=== PATIENT | female | born 1990 | race Caucasian/White ===

== ENCOUNTER → 2020-09-10 09:15 | Outpatient (CLI) | payer BC, SELFPAY ==
[2020-09-10 09:59] LABS: Basophils % 0.5 % (0.1-2.0); Eosinophils # 0.2 K/mm3 (0.0-0.4); Eosinophils % 2.2 % (0.1-12.0); Hematocrit 42.6 % (37.0-47.0); Hemoglobin 13.6 g/dL (12.2-16.2); Lymphocytes # 2.3 K/mm3 (0.7-4.5); Mean Corpuscular Hemoglobin 29.4 pg (27.0-31.2); Mean Corpuscular Volume 92.1 fl (81-99); Mean Platelet Volume 7.7 fl (7.4-10.4); Monocytes # 0.5 K/mm3 (0.1-1.0); Monocytes % 7.2 % (1.7-9.3); Neutrophils # 4.1 K/mm3 (1.8-7.8); Platelet Count 293 K/mm3 (142-424); Red Blood Count 4.62 M/mm3 (4.20-5.40); Red Cell Distribution Width 13.1 % (11.5-17.5)
[2020-09-10 10:01] LABS: Alanine Aminotransferase 25 U/L (12-78); Albumin Level 4.3 g/dl (3.5-5.0); Albumin/Globulin Ratio 1.5 (1.1-1.8); Alkaline Phosphatase 75 U/L (38-126); Anion Gap 12.1 mEq/L (5-15); Aspartate Amino Transferase 33 U/L (14-36); Bilirubin,Total 0.4 mg/dl (0.2-1.3); Blood Urea Nitrogen 9 mg/dl (7-17); Calcium 9.4 mg/dl (8.4-10.2); Carbon Dioxide 29 mmol/L (22.0-30.0); Chloride 103 mmol/L (98-107); Chol/HDL Ratio 2.6 (1-3.5); Cholesterol 148 mg/dl (140-200); Estimated Glomerular Filt Rate 100 ml/min (>60); GFR (African American) 121 ML/MIN (>60); Globulin 2.9 g/dL (1.3-3.2); Glucose 101 mg/dl (74-100); HDL Cholesterol 58 mg/dl (40-60); Potassium 4.1 mmoL/L (3.5-5.1); Sodium 140 mmol/L (136-145); Total Protein,Serum 7.2 g/dl (6.3-8.2); Triglycerides 95 mg/dl (30-150); VLDL Cholesterol 19 mg/dL (0-40)
[2020-09-10 10:31] LABS: Thyroid Stimulating Hormone 3.53 uIU/mL (0.465-4.68)
== END ==
PROVIDERS: Visit Provider Family Medicine
DX: R42 Dizziness and giddiness (principal); F41.8 Other specified anxiety disorders
CPT/HCPCS: 36415; 80053; 80061; 84443; 85025

== ENCOUNTER → 2021-02-04 09:48 | Outpatient (CLI) | payer BC, SELFPAY ==
[2021-02-04 14:01] LABS: T4 (Thyroxine) 8.8 ug/dl (5.53-11.0); Triiodothryronine (T3) Uptake 34 % (23.5-40.5)
[2021-02-04 14:15] LABS: Thyroid Stimulating Hormone 1.76 uIU/mL (0.465-4.68)
[2021-02-05 10:58] LABS: FSH 4.6 mIU/mL (.); LH 17.9 mIU/mL (.)
[2021-02-09 15:13] LABS: Testosterone,Free 3.3 pg/mL (0.0-4.2)
== END ==
PROVIDERS: Visit Provider Nurse Practitioner Obstetrics & Gynecology
DX: L68.0 Hirsutism (principal); L68.9 Hypertrichosis, unspecified
CPT/HCPCS: 36415; 82626; 83001; 83002; 84402; 84436; 84443; 84479

== ENCOUNTER 2022-03-31 16:33 | Emergency (ER) | payer BC, SELFPAY ==
--- NOTE | 2022-03-31 17:24 | EXP.UTC ---
Discharge Plan Disposition Patient Disposition: Home, Self-Care Condition: Good Prescriptions Prescriptions: New promethazine-DM 6.25-15 mg/5 mL Syrup 5 ml PO Q6H PRN (Reason: Cough) Qty: 180 0RF prednisone [prednisone] 20 mg tablet 20 mg PO BID 5 Days Qty: 10 0RF cefdinir 300 mg capsule 300 mg PO BID 20 Days Qty: 20 0RF promethazine-DM 6.25-15 mg/5 mL Syrup 5 ml PO Q6H PRN (Reason: Cough) Qty: 180 0RF prednisone [prednisone] 20 mg tablet 20 mg PO BID 5 Days Qty: 10 0RF cefdinir 300 mg capsule 300 mg PO BID 20 Days Qty: 20 0RF No Action prednisolone acetate [Pred Forte] 1 % drops,suspension 1 drp OPHTHALMIC BID spironolactone 50 mg tablet 50 mg PO DAILY Qty: 90 0RF Referrals Follow up/Referrals: Adal Momin MD [Primary Care Provider] - See instructions Activity Restrictions/Add. Instructions Additional Instructions/Restrictions: Return to [facility] if symptoms worsen Clinical Impressions Clinical Impression: Pneumonia Instructions Patient Instructions: DI for Pneumonia -- Adult Discharge ED Provider: Carol Ferguson [facility] HPI General Stated complaint: cough, chills, NA Time Seen by Provider: 03/31/22 17:30 History of Present Illness Provider Complaint: Cough, chills, headache X 3 days. Denies ear pain, sinus congestion, sore throat. Green sputum. No vomiting or diarrhea. No rash. She does not smoke. Onset (ago): day(s) (3) Location: chest Relieving factors: none Exacerbating factors: none Associated symptoms: cough, fever/chills and headaches Treatments prior to arrival: none Related Data Home Medications Medication Instructions Recorded Confirmed prednisolone acetate 1 % eye 1 drp ophthalmic (eye) BID 02/03/21 02/03/21 drops,suspension (Pred Forte) Previous Rx's Medication Instructions Recorded spironolactone 50 mg tablet 50 mg PO DAILY #90 tabs 02/03/21 cefdinir 300 mg capsule 300 mg PO BID 20 days #20 caps 03/31/22 cefdinir 300 mg capsule 300 mg PO BID 20 days #20 caps 03/31/22 prednisone 20 mg tablet 20 mg PO BID 5 days #10 tabs 03/31/22 prednisone 20 mg tablet 20 mg PO BID 5 days #10 tabs 03/31/22 promethazine-DM 6.25 mg-15 mg/5 mL 5 ml PO Q6H PRN Cough #180 mL 03/31/22 oral syrup promethazine-DM 6.25 mg-15 mg/5 mL 5 ml PO Q6H PRN Cough #180 mL 03/31/22 oral syrup Allergies Allergy/AdvReac Type Severity Reaction Status Date / Time No Known Allergies Allergy Verified 02/03/21 10:49 PFSH PFSH Social History Smoking Status: Never smoker alcohol intake: never substance use type: denies use current occupational status: employed Travel in the last 8 weeks: None ROS Obtained: Yes All systems reviewed & no additional complaints except as documented Constitutional Constitutional: Reports body ache, Reports chills, Reports fatigue, Reports fever(s), Reports headache(s) and Reports malaise ENT Ears, Nose, Mouth, and Throat: Reports headache(s) Respiratory Respiratory: Reports cough Neurologic Neurologic: Reports headache(s) Endocrine Endocrine: Reports fatigue Physical Exam General General appearance: alert and in no apparent distress Head Head exam: atraumatic, normocephalic and normal inspection Eye Eye exam: Present normal appearance, PERRL, EOMI and conjunctival redness ENT ENT exam: Present normal exam, normal oropharynx, mucous membranes moist, TM's normal bilaterally and normal external ear exam Neck Neck exam: Present normal inspection, full ROM and trachea midline; Absent meningismus or lymphadenopathy Chest Chest inspection: Present normal inspection and symmetric chest wall rise; Absent tenderness Respiratory Respiratory exam: Absent respiratory distress Expanded Respiratory Exam Location: Right: rales and rhonchi and Lower: rales and rhonchi Cardiovascular Cardiovascular exam: Present regular rate and normal rhythm; Absent JVD Abdominal Exam Abdominal exam: Present soft and
[2022-03-31 17:25] VITALS: BP 123/79; PULSE 142; RESP 18; TEMP 39.5; O2SAT 96; BMI 28.0
[2022-03-31 17:29] LABS: UTC Influenza A Antigen Negative (Negative); UTC Influenza B Antigen Negative (Negative)
[2022-03-31 17:43] VITALS: BP 123/79; PULSE 142; RESP 18; TEMP 39.4; O2SAT 96
== END 2022-03-31 17:47 | disposition home or self-care (01) ==
PROVIDERS: Emergency Provider Physician Assistant; PCP Family Medicine
DX: J18.9 Pneumonia, unspecified organism (principal)
CPT/HCPCS: 87804; 99212; G0463

== ENCOUNTER → 2022-05-11 12:14 | Outpatient (CLI) | payer BC, SELFPAY ==
[2022-05-11 12:20] LABS: Microscopic, Urine URINE MICROSCOPIC (MICROSCOPIC)
[2022-05-11 13:02] LABS: Basophils # 0.1 K/mm3 (0-0.2); Basophils % 0.7 % (0.1-2.0); Eosinophils # 0.1 K/mm3 (0.0-0.4); Eosinophils % 1.1 % (0.1-12.0); Hematocrit 46.2 % (37.0-47.0); Hemoglobin 14.1 g/dL (12.2-16.2); Lymphocytes # 1.6 K/mm3 (0.7-4.5); Lymphocytes % 23.6 % (10-50); Mean Corpuscular HGB Conc 30.5 g/dL (31.8-35.4); Mean Corpuscular Hemoglobin 29.7 pg (27.0-31.2); Mean Corpuscular Volume 97.4 fl (81-99); Mean Platelet Volume 8.3 fl (7.4-10.4); Monocytes # 0.4 K/mm3 (0.1-1.0); Monocytes % 6.2 % (1.7-9.3); Neutrophils # 4.6 K/mm3 (1.8-7.8); Neutrophils % 68.3 % (37.0-80.0); Platelet Count 335 K/mm3 (142-424); Red Blood Count 4.74 M/mm3 (4.20-5.40); Red Cell Distribution Width 13.8 % (11.5-17.5); White Blood Count 6.8 K/mm3 (4.8-10.8)
[2022-05-11 13:29] LABS: Alanine Aminotransferase 16 U/L (12-78); Albumin Level 4.7 g/dl (3.5-5.0); Albumin/Globulin Ratio 1.7 (1.1-1.8); Alkaline Phosphatase 74 U/L (38-126); Anion Gap 9.2 mEq/L (5-15); Aspartate Amino Transferase 23 U/L (14-36); Bilirubin,Total 0.4 mg/dl (0.2-1.3); Blood Urea Nitrogen 11 mg/dl (7-17); Calcium 9.6 mg/dl (8.4-10.2); Carbon Dioxide 28 mmol/L (22.0-30.0); Chloride 107 mmol/L (98-107); Estimated Glomerular Filt Rate 98 ml/min (>60); GFR (African American) 119 ML/MIN (>60); Globulin 2.8 g/dL (1.3-3.2); Glucose 86 mg/dl (74-100); Potassium 4.2 mmoL/L (3.5-5.1); Sodium 140 mmol/L (136-145); Total Protein,Serum 7.5 g/dl (6.3-8.2)
[2022-05-11 13:34] LABS: C-Reactive Protein 0.4 mg/L (0-4)
[2022-05-11 13:43] LABS: Erythrocyte Sedimentation Rate 6 mm/hr (0-20)
[2022-05-11 15:17] LABS: Appearance,Urine CLEAR (Clear); Bilirubin,Urine Negative (Negative); Blood, Urine Negative (Negative); Color,Urine YELLOW (Yellow); Glucose,Urine (UA) Negative (Negative); Ketones,Urine Negative (Negative); Leukocyte Esterase,Urine Negative (Negative); Nitrate,Urine Negative (Negative); Protein,Urine Negative (Negative); Specific Gravity, Urine 1.025 (1.005-1.030)
[2022-05-11 16:38] LABS: Bacteria,Urine 3+ /lpf; Calcium Oxalate Crystals,Urine Trace /lpf; WBC,Urine Occasional #/hpf (0-3)
[2022-05-12 14:12] LABS: Anti-Centromere B Antibodies <0.2 AI (0.0-0.9); Anti-DNA (DS) Ab Qn <1 IU/mL (0-9); Anti-Jo-1 <0.2 AI (0.0-0.9); Anti-Smith Antibody <0.2 AI (0.0-0.9); Antichromatin Antibodies <0.2 AI (0.0-0.9); Antiscleroderma-70 Antibodies <0.2 AI (0.0-0.9); RNP Antibodies <0.2 AI (0.0-0.9); Sjogren's Anti-SS-A <0.2 AI (0.0-0.9); Sjogren's Anti-SS-B <0.2 AI (0.0-0.9)
== END ==
PROVIDERS: PCP Family Medicine; Visit Provider Internal Medicine
DX: D89.9 Disorder involving the immune mechanism, unspecified (principal); H20.10 Chronic iridocyclitis, unspecified eye; Z15.89 Genetic susceptibility to other disease; Z79.899 Other long term (current) drug therapy
CPT/HCPCS: 36415; 80053; 81001; 85025; 85651; 86140; 86225; 86235; 87086

== ENCOUNTER → 2022-09-05 12:23 | Outpatient (CLI) | payer BC, SELFPAY ==
[2022-09-05 13:00] LABS: Basophils # 0.1 K/mm3 (0-0.2); Basophils % 0.7 % (0.1-2.0); Eosinophils # 0.2 K/mm3 (0.0-0.4); Eosinophils % 2.7 % (0.1-12.0); Hematocrit 45.8 % (37.0-47.0); Hemoglobin 14.5 g/dL (12.2-16.2); Lymphocytes % 28.1 % (10-50); Mean Corpuscular HGB Conc 31.6 g/dL (31.8-35.4); Mean Corpuscular Hemoglobin 29.7 pg (27.0-31.2); Mean Platelet Volume 7.9 fl (7.4-10.4); Monocytes # 0.6 K/mm3 (0.1-1.0); Monocytes % 8.2 % (1.7-9.3); Neutrophils # 4.2 K/mm3 (1.8-7.8); Neutrophils % 60.4 % (37.0-80.0); Platelet Count 352 K/mm3 (142-424); Red Blood Count 4.87 M/mm3 (4.20-5.40); Red Cell Distribution Width 13.3 % (11.5-17.5); White Blood Count 6.9 K/mm3 (4.8-10.8)
[2022-09-05 13:23] LABS: Alanine Aminotransferase 21 U/L (12-78); Albumin Level 4.6 g/dl (3.5-5.0); Albumin/Globulin Ratio 1.6 (1.1-1.8); Alkaline Phosphatase 64 U/L (38-126); Anion Gap 12.3 mEq/L (5-15); Aspartate Amino Transferase 27 U/L (14-36); Bilirubin,Total 0.4 mg/dl (0.2-1.3); Blood Urea Nitrogen 9 mg/dl (7-17); Calcium 8.8 mg/dl (8.4-10.2); Carbon Dioxide 28 mmol/L (22.0-30.0); Chloride 103 mmol/L (98-107); Estimated Glomerular Filt Rate 117 ml/min (>60); GFR (African American) 142 ML/MIN (>60); Globulin 2.8 g/dL (1.3-3.2); Glucose 76 mg/dl (74-100); Potassium 4.3 mmoL/L (3.5-5.1); Sodium 139 mmol/L (136-145); Total Protein,Serum 7.4 g/dl (6.3-8.2)
[2022-09-05 13:29] LABS: C-Reactive Protein 0.5 mg/L (0-4)
[2022-09-05 13:34] LABS: Erythrocyte Sedimentation Rate 14 mm/hr (0-20)
== END ==
PROVIDERS: PCP Family Medicine; Visit Provider Nurse Practitioner Women's Health
DX: D84.821 Immunodeficiency due to drugs (principal); H20.10 Chronic iridocyclitis, unspecified eye; Z79.899 Other long term (current) drug therapy
CPT/HCPCS: 36415; 80053; 85025; 85651; 86140

== ENCOUNTER → 2022-12-07 14:45 | Outpatient (CLI) | payer BC, SELFPAY ==
[2022-12-07 15:29] LABS: Basophils % 0.5 % (0.1-2.0); Eosinophils # 0.2 K/mm3 (0.0-0.4); Eosinophils % 2.9 % (0.1-12.0); Hematocrit 43.8 % (37.0-47.0); Hemoglobin 13.4 g/dL (12.2-16.2); Lymphocytes # 1.7 K/mm3 (0.7-4.5); Lymphocytes % 27.4 % (10-50); Mean Corpuscular HGB Conc 30.6 g/dL (31.8-35.4); Mean Corpuscular Hemoglobin 28.3 pg (27.0-31.2); Mean Corpuscular Volume 92.5 fl (81-99); Mean Platelet Volume 8.3 fl (7.4-10.4); Monocytes # 0.5 K/mm3 (0.1-1.0); Monocytes % 7.7 % (1.7-9.3); Neutrophils # 3.9 K/mm3 (1.8-7.8); Neutrophils % 61.5 % (37.0-80.0); Platelet Count 319 K/mm3 (142-424); Red Blood Count 4.73 M/mm3 (4.20-5.40); Red Cell Distribution Width 13.2 % (11.5-17.5); White Blood Count 6.3 K/mm3 (4.8-10.8)
[2022-12-07 15:46] LABS: Alanine Aminotransferase 29 U/L (12-78); Albumin Level 4.3 g/dl (3.5-5.0); Albumin/Globulin Ratio 1.5 (1.1-1.8); Alkaline Phosphatase 71 U/L (38-126); Anion Gap 16.1 mEq/L (5-15); Aspartate Amino Transferase 35 U/L (14-36); Bilirubin,Total 0.3 mg/dl (0.2-1.3); Blood Urea Nitrogen 10 mg/dl (7-17); Calcium 8.9 mg/dl (8.4-10.2); Carbon Dioxide 26 mmol/L (22.0-30.0); Chloride 102 mmol/L (98-107); Estimated Glomerular Filt Rate 117 ml/min (>60); GFR (African American) 142 ML/MIN (>60); Globulin 2.8 g/dL (1.3-3.2); Glucose 96 mg/dl (74-100); Potassium 4.1 mmoL/L (3.5-5.1); Sodium 140 mmol/L (136-145); Total Protein,Serum 7.1 g/dl (6.3-8.2)
[2022-12-07 16:18] LABS: Thyroid Stimulating Hormone 1.04 uIU/mL (0.465-4.68)
[2022-12-09 11:51] LABS: Insulin Level Total 18.7 uIU/mL (2.6-24.9)
[2022-12-16 00:08] LABS: Testosterone, Total, LC/MS 62 ng/dL (.)
== END ==
PROVIDERS: PCP Family Medicine; Visit Provider Obstetrics & Gynecology
DX: L68.0 Hirsutism (principal); N92.6 Irregular menstruation, unspecified; Z79.899 Other long term (current) drug therapy
CPT/HCPCS: 36415; 80053; 82626; 83525; 84403; 84443; 85025

== ENCOUNTER → 2023-02-19 12:41 | Outpatient (CLI) | payer BC, SELFPAY ==
[2023-02-19 16:13] LABS: Chloride 106 mmol/L (98-107); Potassium 4.5 mmoL/L (3.5-5.1); Sodium 140 mmol/L (136-145)
[2023-02-19 16:15] LABS: Blood Urea Nitrogen 6 mg/dl (7-17); Estimated Glomerular Filt Rate 98 ml/min (>60); GFR (African American) 119 ML/MIN (>60)
[2023-02-19 16:16] LABS: Alanine Aminotransferase 32 U/L (12-78); Albumin Level 4.1 g/dl (3.5-5.0); Albumin/Globulin Ratio 1.3 (1.1-1.8); Alkaline Phosphatase 106 U/L (38-126); Anion Gap 17.5 mEq/L (5-15); Aspartate Amino Transferase 35 U/L (14-36); Bilirubin,Total 0.6 mg/dl (0.2-1.3); Calcium 9.7 mg/dl (8.4-10.2); Carbon Dioxide 21 mmol/L (22.0-30.0); Globulin 3.2 g/dL (1.3-3.2); Glucose 115 mg/dl (74-100); Total Protein,Serum 7.3 g/dl (6.3-8.2)
== END ==
PROVIDERS: PCP Family Medicine; Visit Provider Obstetrics & Gynecology
DX: L68.0 Hirsutism (principal)
CPT/HCPCS: 36415; 80053

== ENCOUNTER → 2023-04-02 09:33 | Outpatient (CLI) | payer BC, SELFPAY ==
[2023-04-02 11:13] LABS: Hemoglobin A1C 5.2 % (4.0-6.0)
[2023-04-02 12:02] LABS: Chol/HDL Ratio 3.3 (1-3.5); Cholesterol 143 mg/dl (140-200); HDL Cholesterol 44 mg/dl (40-60); Triglycerides 68 mg/dl (30-150); VLDL Cholesterol 14 mg/dL (0-40)
[2023-04-02 12:13] LABS: Direct LDL Cholesterol 79.35 mg/dL (100-129)
[2023-04-02 12:15] LABS: Free T4 (Free Thyroxine) 1.37 ng/dl (0.78-2.19)
[2023-04-02 12:17] LABS: 25-OH Vitamin D, Total 27.8 ng/mL (30-100)
[2023-04-02 12:49] LABS: Vitamin B12 437 pg/mL (239-931)
== END ==
PROVIDERS: PCP Internal Medicine; Visit Provider Internal Medicine
DX: Z13.21 Encounter for screening for nutritional disorder (principal); Z13.1 Encounter for screening for diabetes mellitus; Z13.220 Encounter for screening for lipoid disorders; Z13.29 Encounter for screening for other suspected endocrine disorder; E55.9 Vitamin D deficiency, unspecified; Z68.39 Body mass index [BMI] 39.0-39.9, adult
CPT/HCPCS: 36415; 80061; 82306; 82607; 83036; 84439

== ENCOUNTER → 2023-04-10 09:31 | Outpatient (CLI) | payer BC, SELFPAY ==
--- NOTE | 2023-04-10 09:36 | XR_ITS ---
FINAL REPORT CLINICAL HISTORY: Numbness/Tingling from next down to hand PT UNABLE TO REMOVE PIERCINGS FINDINGS: SPINE CERVICAL COMPLETE/FLEXION & EXT AP, lateral, oblique and flexion and extension views were obtained. Alignment is within normal limits. The vertebrae are normal height. The disc spaces are preserved. There is no abnormal movement with flexion or extension. IMPRESSION: No acute process. Reviewed, Interpreted and Dictated by Khanh Dorman III, MD Transcribed by Leonard Lopez Authenticated and [facility]
--- OUTSIDE RECORDS SUMMARY | 2023-04-10 09:40 | XMS_ITS | Continuity of Care Document ---
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 qtb negative november 2021. approved till 02/02/2023. difluprednate 0.05 % eye drops instill 1 drop by ophthalmic route 4 times every day into affected eye(s) ;start 24hrs post op x 2 wks; then 2 times/day x 7 days; then taper 1.00 drop - Active Humira(CF) Pen 40 mg/0.4 mL subcutaneous kit inject 0.4 milliliter by subcutaneous route every 2 weeks in the abdomen or thigh (rotate sites) 40 MG - No Longer Active failed: methotrexate, steroid eye drops, remicade. qtb negative november 2021. approved till 02/02/2023. Procedures Procedure Date Office Visit Level IV Office Visit Level IV
== END ==
LOC: RAD 09:32
PROVIDERS: PCP Internal Medicine; Visit Provider Internal Medicine
DX: R20.2 Paresthesia of skin (principal)
CPT/HCPCS: 72052

== ENCOUNTER 2023-11-03 11:23 | Emergency (ER) | payer BC, SELFPAY ==
--- OUTSIDE RECORDS SUMMARY | 2023-11-03 11:26 | XMS_ITS | Continuity of Care Document ---
Author Name Unknown Organization [facility] Address [address] [address] Phone Care Team Providers Care Bin Packer Name Role Phone Audrey Lynch APRN Unavailable [...] Visit Level IV Office Visit Level IV EL-anti-CCP/2 Rheumatoid Factor Valdemar RF/3 IgM Aug-03-2 022 RF/3 IgG/IgA New Office Visit Level V Chest X-ray 2 Views Advance Directives Directive Yes / No Effective Date File Name No Information Encounters Encounter Description Practice Location Reason(s) For Visit Diagnoses Date Provider Providers Copied on Encounter Office Visit Level IV [facility] [address] [facility] [address] [place] [address], [id number], tel:[phone] [place] Location Bilateral chronic uveitis (chief complaint) Chronic UveitisHLA-B27 POSITIVEHigh Risk Medication UseBody mass index (BMI) 37.0-37.9, adultImmune deficiency due to current drug Aug- 3 Syed Ventura. [address] [facility], [address], [place], [id number]. tel:[phone] Referring Provider: Nereida De León, [address], [place], [address]. tel:[phone] Office Visit Level IV [facility] [address] [place] [address], [id number], [place] tel:[phone] [place] Location Bilateral chronic uveitis (chief complaint) Immunosuppress ionChronic UveitisHLA-B27 POSITIVEBody mass index (BMI) 36.0-36.9, adultHigh Risk Medication Use 2 Dayne Valente. [address], [place], [place], [id number]. tel:[phone] Referring Provider: Nereida De León, [address], [place], [address]. tel:[phone] [facility] [address], [place], [place], [id number], [place] tel:[phone] [facility] No Information 2 Dayne Valente. [address], [place], [place], [id number]. tel:[phone] Referring Provider: Nereida De León, [address], [place], [address]. tel:[phone] New Office Visit Level V [facility], [address], [place], [place], [id number], tel:[phone] [facility]. Bilateral chronic uveitis (chief complaint) Body mass index (BMI) 36.0-36.9, adultChronic UveitisHLA-B27 POSITIVEHigh Risk Medication UseImmunosuppr ession 2 Dayne Valente. [address], [place], [place], [id number]. tel:[phone] Referring Provider: Nereida De León, [address] [facility] [address], [place], [address]. tel:[phone] Family History Family Member Type Diagnosis Age At Onset Mother Problem Diabetes mellitus Immunizations Vaccine Date Status Comments Flu (split) (3 yrs or older) administered Source: Other Provider SARS-COV-2 (COVID-19) vaccin e, vector non-replicating, recombinant spike protein-Ad26, preservative free, 0.5 mL ([address]) administered Source: Other Provid er Payers Payer name Insurance type Covered libertarian ID Authoriza tion(s) [facility] National Account [id number] BL [id number] Social History Type Description Quantity Date Captured Comments Alcohol Use Details No Caffeine Use Details Unknown Tobacco Use Status Current non-smoker 23 Smoking Status Never smoker Sex Female Vital Signs Date / Time: Height Weight BMI Pulse Rate Blood Pressure Temperature Respiratory Rate Body Surface Area Head Circumference Head Circ. Percentile Wt./Mathieu. Percentile BMI percentile Pulse Ox Inhaled Ox 10:43 AM 60.00 in 87.362 kg (192.60 lbs) 37.6 1 kg/m eter (2) 100 /min 118/68 mm[Hg] 98.10 F Chief Complaint And Reason For Visit From encounter dated '09/05/2022 10:30'. Bilateral chronic uveitis (chief complaint) Reason For Referral Reason For Referral No Information Plan Of Treatment Date Type Action Status Goal Lifestyle educat ion regarding diet completed Goal Lifestyle educat ion regarding diet completed Goal Lifestyle educat ion regarding diet completed Future Order: Lab Order CBC With Differential/Platelet ([id number]), Ordered on: Ordered Future Order: Lab Order Comp. Ma tabolic Panel (14) ([id number]), Ordered on: Ordered Future Order: Lab Order C-Reacti ve Protein, Quant ([id number]), Ordered on: Ordered Future Order: Lab Order Sediment ation Rate-Westergren ([id number]), Ordered on: Ordered Future Order: Lab Order CBC With Differential/Platelet ([id number]), Ordered on: Ordered Future Order: Lab Order Comp. Ma tabolic Panel (14) ([id number]), Ordered on: Ordered Future Order: Lab Order C-Reacti ve Protein, Quant ([id number]), Ordered on: Ordered Future Order: Lab Order Sediment ation Rate-Westergren ([id number]), Ordered on: Ordered Future Order: Lab Order UA, Comp lete w/ Micro Exam w/Rflx Culture, Comp ([id number]), Ordered on: Ordered Future Order: Lab Order SANCHEZ Comp rehensive Plus Profile ([id number]), Ordered on: Ordered Future Order: Radiology Order Ch est X-ray, AP/Lat (2 Views) ([id number]), Ordered on: Ordered Future Order: Lab Order Cyclic Citrullinated Peptide-4P (Theratest) (CCP4P), Ordered on: Ordered Future Order: Lab Order Rheuma toid Factor/3 IgM, IgG, IgA (Theratest) (RF3), Ordered on: Ordered Future Order: Lab Order ANCA Peter el ([id number]), Ordered on: Ordered Future Order: Lab Order Antinucl ear Antibodies, SANCHEZ, IFA ([id number]), Ordered on: Ordered Future Order: Lab Order CBC With Differential/Platelet ([id number]), Ordered on: Ordered Future Order: Lab Order Comp. Me tabolic Panel (14) ([id number]), Ordered on: Ordered Future Order: Lab Order HIV 1/0/ 2 Ag/Ab with Reflex ([id number]), Ordered on: Ordered Future Order: Lab Order HLA B 27 Disease Association ([id number]), Ordered on: Ordered Future Order: Lab Order Lyme Ab/ Western Blot Reflex ([id number]), Ordered on: Ordered Future Order: Lab Order Inflamma tory Bowel Disease-IBD ([id number]), Ordered on: Ordered Future Order: Lab Order Sediment ation Rate-Westergren ([id number]), Ordered on: Ordered Future Order: Lab Order RPR, Rfx Qn RPR/Confirm TP-PA ([id number]), Ordered on: Ordered Future Order: Lab Order UA, Comp lete w/ Micro Exam w/Rflx Culture, Comp ([id number]), Ordered on: Ordered Future Order: Lab Order Hepatiti s Panel (4) ([id number]), Ordered on: Ordered History Of Present Illness Encounter Date Complaint History Of Prese nt Illness Bilateral chronic uveitis Bilateral chronic uveitis Bilateral chronic uveitis Functional Status Date Functional Assessmen t Pain Score 0/10 Instructions Date Instruction Additional Infor mation No known side effect s. 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 Risks and alternatives were discussed at length and the option of no treatment was also given. We discussed risks including but not limited to infections which can be unusual, severe, and deadly. When possible, these agents should be stopped immediately if infections occur. Unusual infection such as TB and fungal infections can occur. There may be an increased risk of lymphoma with these agents. Other risks can include a multiple sclerosis-like illness and worsening of heart failure. Infusion or injection reactions which can be deadly have been reported. Studies on have not been done so should be avoided while on these agents. Reactivation of a deadly brain virus and hepatitis viruses have been reported. Worsening of COPD has been seen with orencia. Elevated lipids, elevation in liver functions, and dangerous changes in blood counts have been seen with certain agents. Regular monitoring will be required. Related to High Risk Medication Use History of refractor y disease despite topical steroids.Referred by [facility] 01/10/22 to consider immunomodulatory therapy for chronic bilateral uveitis initially diagnosed around the age of 16. Extensive workup through the years has not revealed an underlying cause. 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 Now following with Dr. Garcia.Previously was on methotrexate through [facility] which did not help.Previously was on Remicade for 6-7 years through [facility] which did help, but she would prefer not to go back on infusible biologic therapy.Overall she reports she is doing well today on Humira 40 mg every 2 weeks.She reports that her eye exam is overall stable with [facility] Dr. Garcia.No redness or pain to the eyes presently. Humira refilled.Labs ordered today for monitoring as belowWe discussed that uveitis is sometimes associated with underlying infection and autoimmune disease, but upwards of 50% of uveitis cases are idiopathic.Clinically she has no evidence of systemic inflammatory rheumatic disease that would cause uveitis such as rheumatoid arthritis, lupus, Anca vasculitis.Return to clinic 4 months Related to Chronic Uveitis Lifestyle education regarding di et Related to Body mass index [BMI] 37.0-37.9, adult No known side effect s. No serious infection Related to Immunosuppression Well tolerated We di scussed biologic agents at length. Risks and alternatives were discussed at length and the option of no treatment was also given. We discussed risks including but not limited to infections which can be unusual, severe, and deadly. When possible, these agents should be stopped immediately if infections occur. Unusual infection such as TB and fungal infections can occur. There may be an increased risk of lymphoma with these agents. Other risks can include a multiple sclerosis-like illness and worsening of heart failure. Infusion or injection reactions which can be deadly have been reported. Studies on have not been done so should be avoided while on these agents. Reactivation of a deadly brain virus and hepatitis viruses have been reported. Worsening of COPD has been seen with orencia. Elevated lipids, elevation in liver functions, and dangerous changes in blood counts have been seen with certain agents. Regular monitoring will be required. Related to High Risk Medication Use History of refractor y disease despite topical steroids.Referred by [facility] 01/10/22 to consider immunomodulatory therapy for chronic bilateral uveitis initially diagnosed around the age of 16. Extensive workup through the years has not revealed an underlying cause. 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 Now following with Dr. Garcia.Previously was on methotrexate through [facility] which did not help.Previously was on Remicade for 6-7 years through [facility] which did help, but she would prefer not to go back on infusible biologic therapy.Overall she reports she is doing well today on Humira 40 mg every 2 weeks.She reports that her eye exam is overall stable with [facility] Dr. Garcia.No redness or pain to the eyes presently. Humira refilled.Labs ordered today for monitoring as belowWe discussed that uveitis is sometimes associated with underlying infection and autoimmune disease, but upwards of 50% of uveitis cases are idiopathic.Clinically she has no evidence of systemic inflammatory rheumatic disease that would cause uveitis such as rheumatoid arthritis, lupus, Anca vasculitis.Return to clinic 4 months Related to Chronic Uveitis Lifestyle education regarding di et Related to Body mass index [BMI] 36.0-36.9, adult We discussed biologi c agents at length. Risks and alternatives were discussed at length and the option of no treatment was also given. We discussed risks including but not limited to infections which can be unusual, severe, and deadly. When possible, these agents should be stopped immediately if infections occur. Unusual infection such as TB and fungal infections can occur. There may be an increased risk of lymphoma with these agents. Other risks can include a multiple sclerosis-like illness and worsening of heart failure. Infusion or injection reactions which can be deadly have been reported. Studies on have not been done so should be avoided while on these agents. Reactivation of a deadly brain virus and hepatitis viruses have been reported. Worsening of COPD has been seen with orencia. Elevated lipids, elevation in liver functions, and dangerous changes in blood counts have been seen with certain agents. Regular monitoring will be required. 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 Extensive workup through the years has not revealed an underlying cause. 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 QTB negative on 11/22/21.Chest x-ray ordered today to screen for sarcoidosis. Jeremy level has been normal.Two Humira samples provided today. Handout provided on Humira and uveitis.We discussed that uveitis is sometimes associated with underlying infection and autoimmune disease, but upwards of 50% of uveitis cases are idiopathic.Clinically she has no evidence of systemic inflammatory rheumatic disease that would cause uveitis such as rheumatoid arthritis, lupus, Anca vasculitis.Return to clinic 3 months Related to Chronic Uveitis Lifestyle education regarding di et Related to Body mass index [BMI] 36.0-36.9, adult Assessments Type Assessment Date assessment Chronic Uveitis impression . Works [employer]. N o childrenReferred by [facility] Dr. De León/now Dr. 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
[2023-11-03 11:50] VITALS: BP 108/81; PULSE 87; RESP 14; TEMP 36.7; O2SAT 97; BMI 37.3
--- NOTE | 2023-11-03 12:22 | EXP.UTC ---
Discharge Plan Disposition Patient Disposition: Home, Self-Care Condition: Good Prescriptions Prescriptions: New triamcinolone acetonide 0.1 % cream 1 applic topical TID Qty: 15 0RF No Action difluprednate 0.05 % drops 1 drp Eye-Both TID amoxicillin-pot clavulanate 875-125 mg tablet 1 tab PO BID 10 Days Qty: 20 0RF levocetirizine [Xyzal] 5 mg tablet 5 mg PO DAILY Qty: 90 3RF Referrals Follow up/Referrals: Elmer Barajas DO [Primary Care Provider] - See instructions Activity Restrictions/Add. Instructions Additional Instructions/Restrictions: Apply vaseline and cover site between medication application. If symptoms persist or worse, follow up with PCP. Clinical Impressions Clinical Impression: Dermatitis Instructions Patient Instructions: DI for Atopic Dermatitis-Adult Discharge ED Provider: Wandy Cervantes [facility] General Stated complaint: spot on left ankle Mode of Arrival: Ambulatory Source of Information: Patient Limitations: No Limitations Time Seen by Provider: 11/03/23 12:13 Description of Symptoms (Recalled from Triage Doc. by RN): Pt states that she has a red itchy spot on back of ankle. HEENT Symptoms (Recalled from RN notes): No Resp Symptoms (Recalled from RN notes): No Skin Symptoms (Recalled from RN notes): Yes MS Symptoms (Recalled from RN notes): No Functional Status (Recalled from RN notes): n/a History of Present Illness Provider Complaint: Pt states that for the last 2 weeks she has had a red itchy spot on the back of her ankle. She reports that she has been putting hydrocortisone cream on the site. Related Data Home Medications Medication Instructions Recorded Confirmed difluprednate 0.05 % eye drops 1 drp Eye-Both TID 06/12/23 10/31/23 Previous Rx's Medication Instructions Recorded amoxicillin 875 mg-potassium 1 tab PO BID 10 days #20 tabs 10/31/23 clavulanate 125 mg tablet levocetirizine 5 mg tablet (Xyzal) 5 mg PO DAILY #90 tabs 10/31/23 triamcinolone acetonide 0.1 % 1 applic topical TID #15 grams 11/03/23 topical cream Allergies Allergy/AdvReac Type Severity Reaction Status Date / Time No Known Allergies Allergy Verified 10/31/23 14:05 Worker's Comp Is this a Worker's Comp case?: No [facility] Disclaimer: The information contained in this section may have been updated after the patient was seen, as this information can be updated by other users. Medical History Encounter for vitamin deficiency screening Tingling of left upper extremity Vitamin D deficiency Dizziness Pupillary abnormality of left eye Ptosis, left eyelid Numbness and tingling in left hand First noticed 03/2023. Hirsutism Uveitis Surgical History History of eye surgery Family History Mother Cancer cervical Other Diabetes Social History Smoking Status: Never smoker alcohol intake: never substance use type: denies use current occupational status: employed Travel in the last 8 weeks: None household members: spouse housing: house marital status: ROS Obtained: Yes All systems reviewed & no additional complaints except as documented Constitutional Constitutional: Reports system reviewed and no additional complaints, except as documented Eyes Eyes: Reports system reviewed and no additional complaints, except as documented ENT Ears, Nose, Mouth, and Throat: Reports system reviewed and no additional complaints, except as documented Cardiovascular Cardiovascular: Reports system reviewed and no additional complaints, except as documented Respiratory Respiratory: Reports system reviewed and no additional complaints, except as documented Gastrointestinal Gastrointestingal: Reports system reviewed and no additional complaints, except as documented Genitourinary Female Genitourinary: Reports system reviewed and no additional complaints, except as documented Musculoskeletal Musculoskeletal: Reports system reviewed and no additional complaints, except as documented Integumentary/Breasts Skin/Breast: Reports system reviewed and no additional complaints, except as documented, Reports dry skin, Reports redness and Reports pruritus Neurologic Neurologic: Reports system reviewed and no additional complaints, except as documented Endocrine Endocrine: Reports system reviewed and no additional complaints, except as documented Hematologic/Lymphatic Henatologic/Lymphatic: Reports system reviewed and no additional complaints, except as documented Allergic/Immunologic Allergic/Immunologic: Reports system reviewed and no additional complaints, except as documented Physical Exam General General appearance: alert and in no apparent distress Head Head exam: atraumatic and normocephalic Eye Eye exam: Present normal appearance Neck Neck exam: Present normal inspection Chest Chest inspection: Present normal inspection and symmetric chest wall rise Respiratory Respiratory exam: Present normal lung sounds bilaterally Cardiovascular Cardiovascular exam: Present regular rate and normal rhythm Abdominal Exam Abdominal exam: Present soft and normal bowel sounds Extremities Exam Extremities exam: Present normal inspection Back Exam Back exam: Present normal inspection Neurological Exam Neurological exam: Present alert and oriented X3 Psychiatric Psychiatric exam: Present normal affect and normal mood Expanded Skin Exam Type of lesion: Present rash Distribution: RLE Description: Present erythematous and crusting Comment: back of right ankel. Lymphatic Lymphatic Findings: no adenopathy Medical Decision Making Fabien Inquiry Pt receiving controlled substance: No Fabien was queried for this patient: No Vital Signs: 11/03/23 11:50 Temperature 98.0 F Temperature Source Oral Pulse Rate [Right Radial] 87 Respiratory Rate 14 Blood Pressure [Right Arm] 108/81 L Blood Pressure Mean [Right Arm] 90 Blood Pressure Source [Right Arm] Automatic Cuff Blood Pressure Position [Right Arm] Sitting 02 Sat by Pulse Oximetry 97 Oxygen Delivery Method Room Air
[2023-11-03 12:34] VITALS: BP 108/81; PULSE 87; RESP 14; TEMP 36.7; O2SAT 97
== END 2023-11-03 12:34 | disposition home or self-care (01) ==
PROVIDERS: Emergency Provider Nurse Practitioner Family; PCP Internal Medicine
DX: L30.9 Dermatitis, unspecified (principal)
CPT/HCPCS: 99212; 99214; G0463

== ENCOUNTER 2024-05-02 12:58 | Outpatient (CLI) | payer BC, SELFPAY ==
[2024-05-02 13:06] LABS: Basophils % 0.4 % (0.1-2.0); Eosinophils # 0.2 K/mm3 (0.0-0.4); Eosinophils % 2.3 % (0.1-12.0); Hematocrit 42.7 % (37.0-47.0); Hemoglobin 13.9 g/dL (12.2-16.2); Lymphocytes # 1.3 K/mm3 (0.7-4.5); Lymphocytes % 18.7 % (10-50); Mean Corpuscular HGB Conc 32.7 g/dL (31.8-35.4); Mean Corpuscular Hemoglobin 30.4 pg (27.0-31.2); Mean Corpuscular Volume 93.1 fl (81-99); Mean Platelet Volume 10.2 fl (7.4-10.4); Monocytes # 0.6 K/mm3 (0.1-1.0); Monocytes % 8.5 % (1.7-9.3); Neutrophils # 4.7 K/mm3 (1.8-7.8); Neutrophils % 70.1 % (37.0-80.0); Platelet Count 317 K/mm3 (142-424); Red Blood Count 4.59 M/mm3 (4.20-5.40); Red Cell Distribution Width 13.4 % (11.5-17.5); White Blood Count 6.7 K/mm3 (4.8-10.8)
[2024-05-02 13:48] LABS: Alanine Aminotransferase 21 U/L (12-78); Albumin Level 4.2 g/dl (3.5-5.0); Albumin/Globulin Ratio 1.6 (1.1-1.8); Alkaline Phosphatase 67 U/L (38-126); Anion Gap 13.8 mEq/L (5-15); Aspartate Amino Transferase 29 U/L (14-36); Bilirubin,Total 1.1 mg/dl (0.2-1.3); Blood Urea Nitrogen 9 mg/dl (7-17); Calcium 9.1 mg/dl (8.4-10.2); Carbon Dioxide 23 mmol/L (22.0-30.0); Chloride 107 mmol/L (98-107); Chol/HDL Ratio 2.9 (1-3.5); Cholesterol 147 mg/dl (140-200); Estimated Glomerular Filt Rate 116 ml/min (>60); GFR (African American) 140 ML/MIN (>60); Globulin 2.6 g/dL (1.3-3.2); Glucose 67 mg/dl (74-100); HDL Cholesterol 50 mg/dl (40-60); Potassium 4.8 mmoL/L (3.5-5.1); Sodium 139 mmol/L (136-145); Total Protein,Serum 6.8 g/dl (6.3-8.2); Triglycerides 58 mg/dl (30-150); VLDL Cholesterol 12 mg/dL (0-40)
[2024-05-02 13:59] LABS: Direct LDL Cholesterol 73.27 mg/dL (100-129)
[2024-05-02 14:07] LABS: 25-OH Vitamin D, Total 28.2 ng/mL (30-100)
[2024-05-02 14:37] LABS: Vitamin B12 376 pg/mL (239-931)
[2024-05-02 15:05] LABS: Hemoglobin A1C 4.5 % (4.0-6.0)
== END 2024-05-02 23:59 | disposition home or self-care (01) ==
LOC: LAB.DROPOF 12:59
PROVIDERS: PCP Internal Medicine; Visit Provider Internal Medicine
DX: E53.8 Deficiency of other specified B group vitamins (principal); Z00.00 Encounter for general adult medical examination without abnormal findings; Z13.220 Encounter for screening for lipoid disorders; Z13.1 Encounter for screening for diabetes mellitus; Z13.29 Encounter for screening for other suspected endocrine disorder; Z13.21 Encounter for screening for nutritional disorder
CPT/HCPCS: 80050; 80053; 80061; 82306; 82607; 83036; 84443; 85025

== ENCOUNTER 2024-11-05 18:12 | Outpatient (CLI) | payer BC, SELFPAY ==
[2024-11-05 18:52] LABS: Alanine Aminotransferase 20 U/L (12-78); Albumin Level 4.6 g/dl (3.5-5.0); Albumin/Globulin Ratio 1.7 (1.1-1.8); Alkaline Phosphatase 59 U/L (38-126); Aspartate Amino Transferase 25 U/L (14-36); Bilirubin,Total 0.5 mg/dl (0.2-1.3); Blood Urea Nitrogen 11 mg/dl (7-17); Calcium 9.3 mg/dl (8.4-10.2); Carbon Dioxide 26 mmol/L (22.0-30.0); Chloride 105 mmol/L (98-107); Estimated Glomerular Filt Rate 97 ml/min (>60); GFR (African American) 117 ML/MIN (>60); Globulin 2.7 g/dL (1.3-3.2); Glucose 52 mg/dl (74-100); Sodium 141 mmol/L (136-145); Total Protein,Serum 7.3 g/dl (6.3-8.2)
[2024-11-05 19:17] LABS: Basophils # 0.1 K/mm3 (0-0.2); Basophils % 0.6 % (0.1-2.0); Eosinophils # 0.1 Kmm3 (0.0-0.4); Eosinophils % 1.5 % (0.1-12.0); Hematocrit 38.7 % (37.0-47.0); Hemoglobin 12.4 g/dL (12.2-16.2); Immature Granulocytes # 0.03 10^3uL; Immature Granulocytes % 0.4 %; Mean Corpuscular Hemoglobin 29.7 pg (27.0-31.2); Mean Corpuscular Volume 92.6 fl (81-99); Mean Platelet Volume 10.5 fl (7.4-10.4); Monocytes # 0.9 K/mm3 (0.1-1.0); Monocytes % 10.5 % (1.7-9.3); Neutrophils # 5.1 K/mm3 (1.8-7.8); Nucleated Red Blood Cells # 0 10^3/uL; Nucleated Red Blood Cells % 0 %; Platelet Count 372 K/mm3 (142-424); Red Blood Count 4.18 M/mm3 (4.20-5.40); Red Cell Distribution Width 13.1 % (11.5-17.5); Red Cell Distribution Width-SD 44.7 fL; White Blood Count 8.1 K/mm3 (4.8-10.8)
[2024-11-05 19:22] LABS: Thyroid Stimulating Hormone 1.23 uIU/mL (0.465-4.68)
[2024-11-05 19:24] LABS: Anion Gap 14.4 mEq/L (5-15); Potassium 4.4 mmoL/L (3.5-5.1)
== END 2024-11-05 23:59 | disposition home or self-care (01) ==
LOC: LAB 18:13
PROVIDERS: PCP Internal Medicine; Visit Provider Internal Medicine
DX: E66.01 Morbid (severe) obesity due to excess calories (principal); R73.9 Hyperglycemia, unspecified; R53.83 Other fatigue
CPT/HCPCS: 36415; 80053; 84443; 85025